=== PATIENT | female | born 1985 | race Two or more races ===

== ENCOUNTER 2024-07-05 14:09 | Emergency (ER) | payer OTHER, MEDICAID ==
[~2024-07-05] VITALS: Ht 154.9 cm; Wt 64.7 kg
[2024-07-05 14:24] VITALS: BP 117/65; PULSE 99; RESP 17; O2SAT 97
[2024-07-05] MEDS ORDERED: CEPH500C PO (14:52)
== END 2024-07-05 16:13 | disposition home or self-care (01) ==
LOC: ER 14:09
DX: L03.115 Cellulitis of right lower limb (principal)

== ENCOUNTER 2024-07-11 11:03 | Emergency (ER) | payer OTHER, MEDICAID ==
[~2024-07-11] VITALS: Ht 154.9 cm; Wt 65.5 kg
[~2024-07-11 11:03] MED LIST: CEPH500C PO
[2024-07-11 11:16] VITALS: BP 138/82; PULSE 78; RESP 18; O2SAT 97
== END 2024-07-11 12:29 | disposition home or self-care (01) ==
LOC: ER 11:03
DX: S10.81XA Abrasion of other specified part of neck, initial encounter (principal); S00.412A Abrasion of left ear, initial encounter; S00.81XA Abrasion of other part of head, initial encounter; Z53.21 Procedure and treatment not carried out due to patient leaving prior to being seen by health care provider; X58.XXXA Exposure to other specified factors, initial encounter; Y93.89 Activity, other specified; Y92.89 Other specified places as the place of occurrence of the external cause; Y99.8 Other external cause status

== ENCOUNTER 2024-07-19 10:42 | Emergency (ER) | payer MEDICAID, OTHER ==
[~2024-07-19] VITALS: Ht 154.9 cm; Wt 65.8 kg
[2024-07-19 11:13] VITALS: BP 124/84; PULSE 114; RESP 15; TEMP 97.3; O2SAT 97
[2024-07-19] MEDS ORDERED: LIDO5DIS21 TOP (15:07)
[2024-07-19] MEDS ORDERED: NAPR-746 PO (15:07)
[2024-07-19] MEDS ORDERED: CYCL-839 PO (15:07)
== END 2024-07-19 15:19 | disposition home or self-care (01) ==
LOC: ER 10:42
DX: M54.6 Pain in thoracic spine (principal); K59.00 Constipation, unspecified; Z79.899 Other long term (current) drug therapy; V29.99XA Rider (driver) (passenger) of other motorcycle injured in unspecified traffic accident, initial encounter; Y93.89 Activity, other specified; Y92.89 Other specified places as the place of occurrence of the external cause; Y99.8 Other external cause status
CPT/HCPCS: 72040; 72070; 72100; 72128

== ENCOUNTER 2024-09-13 13:49 | Emergency (ER) | payer MEDICAID, SELFPAY ==
[~2024-09-13] VITALS: Ht 154.9 cm; Wt 66.3 kg
[~2024-09-13 13:49] MED LIST changes: +CYCL-839 PO; +LIDO5DIS21 TOP; +NAPR-746 PO
[2024-09-13 15:16] VITALS: BP 130/75; PULSE 106; RESP 17; O2SAT 98
[2024-09-13] MEDS: ACETAMINOPHEN 325 MG TAB PO ONE (16:24)
--- NOTE | 2024-09-13 17:09 | DVH ---
EXAM: CT CERVICAL WITHOUT CONTRAST INDICATION: Hx of omer placement, s/p fall EXAM DATE: 09/13/2024 04:33 PM COMPARISON: None TECHNIQUE: Multiple axial CT images of the cervical spine were obtained using bone algorithm. Axial a nd coronal reformatting was done. Bone and soft tissue windows were reviewed. Radiation Dose Information: CT Dose: CTDI volume is 23.61 mGy. Dose-length product is 549.16 mGy*cm FINDINGS: The cervical alignment is intact. No acute cervical spine fracture is identified. The vertebral body heights are intact. No suspicious osseous lesions are identified. There is straightening of the normal cervical lordotic curve which may be secondary to patient positi oning or muscle spasm. This was present on previous cervical spine study of 07/19/2024. Paraspinal rods are noted in the thoracic spine as seen on CT of the thoracic spine of 09/13/2024. There is no prevertebral soft tissue swelling. IMPRESSION: 1. No evidence of acute cervical spine fracture or traumatic malalignment. 2. No findings of compressed cervical vertebra. 3. Stable straightening of the normal cervical lordotic curve. 4. No spondylolisthesis. All CT scans at this medical facility are performed using dose modulation techniques as appropriate t o a performed exam including the following: Automated exposure control was utilized; adjustment of th e MA and/or KV according to patient size; and use of iterative reconstruction technique.
--- NOTE | 2024-09-13 17:10 | ED.PDOC ---
Dionne. trauma (HPI) HPI Comments 39-year-old female with past medical history pertinent for scoliosis, presents to ED for middle and lower back pain x1 day, status post fall. Patient reports that she was decorating her [place] tree when her son and dog ran into the ladder and she fell onto her back. She denies any head injury, LOC, nausea, vomiting, numbness, tingling. Patient also denies any incontinence. She currently rates her pain as 7/10 in severity. Patient reports taking ibuprofen with some relief of symptoms. Patient states that she has a history of rods in her back due to scoliosis surgery and she sore that the rods were displaced. Chief Complaint: Fall Injury Time Seen by MD: 15:09 Primary Care Provider: SILVANO Gupta notes: Nurses Notes, Medications, Allergies Allergies: Coded Allergies: NO KNOWN ALLERGIES (Unverified , 07/05/24) Home Meds Active Scripts Lidocaine (LIDODERM 5% TOPICAL PATCH) 1 Patch Ph, 1 PATCH TOP DAILY for 30 Days, #30 PATCH 0 Refills Prov:JOEY RIGGINS NP 07/19/24 Cyclobenzaprine Hcl (Cyclobenzaprine Hcl) 10 Mg Tab, 10 MG PO QHSP PRN for 10 Days, #10 TAB 0 Refills Prov:JOEY RIGGINS NP 07/19/24 Naproxen (Naproxen) 500 Mg Tab, 500 MG PO BIDPC PRN for 10 Days, #20 TAB 0 Refills Prov:JOEY RIGGINS NP 07/19/24 Cephalexin Monohydrate (Cephalexin) 500 Mg Cap, 500 MG PO QID for 7 Days, CAP Prov:GERARDO HUGHES MD 07/05/24 Mode of Arrival: Ambulatory Past Medical History PAST MEDICAL HISTORY: Denies Surgical History: Denies all surgeries MAIL SORTER AND DELIVERY History: No Pertinent MAIL SORTER AND DELIVERY History Family History Family History: Reviewed,noncontributory to illness, No family hx of Cancer, No family hx of DM, No family hx of Heart jennifer, No family hx of HTN, No family hx ofKidney jennifer, No family hx of Liver jennifer, No family hx of Lung jennifer, No family hx of Stroke Social History Smoker: Non-Smoker Alcohol: Denies ETOH Use Drugs: Denies Drug Use Constitutional: denies: chills, diaphoresis, fatigue, fever, malaise, sweats, weakness, others EENTM: denies: blurred vision, double vision, ear bleeding, ear discharge, ear drainage, ear pain, ear ringing, eye pain, eye redness, hearing loss, mouth pain, mouth swelling, nasal discharge, nose bleeding, nose congestion, nose pain, photophobia, tearing, throat pain, throat swelling, voice changes, others Respiratory: denies: cough, hemoptysis, orthopnea, SOB at rest, shortness of breath, SOB with excertion, stridor, wheezing, others Cardiovascular: denies: chest pain, dizzy spells, diaphoresis, Dyspnea on exertion, edema, irregular heart beat, left arm pain, lightheadedness, palpitations, PND, syncope, others Gastrointestinal: denies: abdomen distended, abdominal pain, blood streaked bowels, constipated, diarrhea, dysphagia, difficulty swallowing, hematemesis, melena, nausea, poor appetite, poor fluid intake, rectal bleeding, rectal pain, vomiting, others Genitourinary: denies: abnormal vagina bleeding, burning, dyspareunia, dysuria, flank pain, frequency, hematuria, incontinence, pain, , vagina disc harge, urgency, others Neurological: denies: dizziness, fainting, headache, left sided numbness, left sided weakness, numbness, paresthesia, pre-existing deficit, right sided numbness, right sided weakness, seizure, speech problems, tingling, tremors, weakness, others Musculoskeletal: reports: back pain; denies: gout, joint pain, joint swelling, muscle pain, muscle stiffness, neck pain, others Integumetry: denies: bruises, change in color, change in hair/nails, dryness, laceration, lesions, lumps, rash, wounds, others Allergic/Immunocompromised: denies: Difficulty Healing, Frequent Infections, Hives, Itching, others Hematologic/Lymphatic: denies: anemia, blood clots, easy bleeding, easy bruising, swollen glands, others Endocrine: denies: excessive hunger, excessive sweating, excessive thirst, excessive urination, flushing, intolerance to cold, intolerance to heat, unexplained weight gain, unexplained weight loss, others Psychiatric: denies: anxiety, bipolar disorder, depression, hopeless, panic disorder, schizophrenia, sleepless, suicidal, others All Other Systems: Reviewed and Negative Physical Exam General Appearance: No Apparent Distress, Normal HEENT: Normal ENT Inspection, Pharynx Normal, TMs Normal Neck: Full Range of Motion, Non-Tender, Normal, Normal Inspection Respiratory: Chest Non-Tender, Lungs Clear, No Accessory Muscle Use, No Respi ratory Distress, Normal Breath Sounds Cardiovascular: No Edema, No JVD, No Murmur, No Gallop, Normal Peripheral Pulses, Regular Rate/Rhythm Breast Exam: Deferred Gastrointestinal: No Organomegaly, Non Tender, No Pulsatile Mass, Normal Bowel Sounds, Soft Genitalia: Deferred Pelvic: Deferred Rectal: Deferred Extremities: No calf tenderness, Normal capillary refill, Normal inspection, Normal range of motion, Non-tender, No pedal edema Musculoskeletal : Extremity Location: Back (Mild tenderness to palpation to the T-spine as well as the L-spine. No spinal step-offs noted.) Apperance: Normal Neurologic: Alert, licensed loan officer II-XII nml as Tested, No Motor Deficits, Normal Affect, Normal Mood, No Sensory Deficits Cerebellar Function: Normal Reflexes: Normal Skin: Dry, Normal Color, Warm Lymphatic: No Adenopathy Was a procedure done? Was a procedure done?: No Differential Diagnosis Multiple Trauma: Closed Head Injury, Fractures, Spine Injury, Other (Fracture, traumatic malalignment, back sprain, cauda equina syndrome) X-Ray, Labs, Meds, VS Vital Signs Date Time Temp Pulse Resp B/P (MAP) Pulse Ox O2 Delivery O2 Flow Rate FiO2 09/13/24 17:28 98.0 09/13/24 15:16 106 17 98 Room Air 09/13/24 15:16 98.7 106 17 130/75 (93) 98 98.7 09/13/24 13:59 98.7 106 17 130/75 (93) 98 Current Medications Medications (Trade) Dose Ordered Sig/Arlene Route Start Time Stop Time Status Last Admin Acetaminophen (Tylenol Tablet) 650 mg ONCE ONCE PO 09/13/24 16:15 09/13/24 16:16 DC 09/13/24 16:24 X-Ray, Labs, Meds, VS Comment CT C Spine IMPRESSION: 1. No evidence of acute cervical spine fracture or traumatic malalignment. 2. No findings of compressed cervical vertebra. 3. Stable straightening of the normal cervical lordotic curve. 4. No spondylolisthesis. CT T Spine IMPRESSION: Severe levoconvex thoracic curvature post-suh omer fixation, diffuse mineralization limiting fracture evaluation with no obvious fractures noted. Left upper lobe bulla and hyperinflation. CT L Spine IMPRESSION: Orthopedic rods and hooks seen throughout the posterior element, lamina, of the lumbar spine. The streaking artifact from the orthopedic hardware limits evaluation. No gross fractures are identified. There is moderate heterotopic ossification adjacent to the orthopedic hardware. The bilateral SI joints are normal. Partially visualized abdominal viscera demonstrates no acute abnormalities. MDM: Patient with history as above presented with back pain. History obtained from patient. Patient was nontoxic, stable, afebrile, ambulatory, no acute distress. Exam as above. Independently reviewed imaging. [Interpretation]. Reviewed external records. All findings were discussed with the patient. Differential diagnosis considered. Overall presentation is consistent with musculoskeletal back pain status post fall. Low suspicion for fracture, traumatic malalignment, cauda equina syndrome. Patient was treated with Tylenol with improvement in symptoms. Patient was reevaluated and vital signs were reviewed. Consideration was given for admission, but the patient was stable for outpatient management. Disposition: Discussed the need to follow up diagnostics, including incidental findings. Discharged the patient with instructions to obtain outpatient follow up in 1-2 days of today's symptoms and findings, with strict return precautions if patient develops new or worsening symptoms. This medical document was created using the [employer] dictation system. Although this document has been carefully reviewed, there may still be some phonetic and typographical errors, which are due to imperfections of the software program, and do not reflect any compromise in the patient's medical care. Time of 1ST Reevaluation: 17:50 Reevaluation 1ST: Improved Patient Education/Counseling: Diagnosis, Treatment, Prognosis, Need For Follow Up Family Education/Counseling: No Family Present Departure 1 Departure Time of Disposition: 17:50 Impression: Primary Impression: Back pain Qualified Codes: M54.50 - Low back pain, unspecified Additional Impression: Fall Qualified Codes: W19.XXXA - Unspecified fall, initial encounter Disposition: HOME / SELF CARE / HOMELESS Condition: Fair Critical Care Note Critical Care Time?: No Stability Stability form required: No Heart Score Heart Score: Heart Score Response (Comments) Value History N/A 0 EKG N/A 0 Age N/A 0 Risk Factors N/A 0 Troponin N/A 0 Total 0 ANGELICA SEVILLA Sep 13, 2024 17:10
--- NOTE | 2024-09-13 17:22 | DVH ---
CT OF THE THORACIC SPINE WITHOUT CONTRAST HISTORY: Hx of omer placement, s/p fall COMPARISON: CT THORACIC SPINE WO CONTRAS on DOS: 07/19/24 TECHNIQUE: Axial images through the thoracic spine were obtained without contrast. Coronal and sagitt al reformats were obtained. One or more of the following radiation dose reduction techniques were use d for this examination: automated exposure control, adjustment of the mA and/or kV according to patie nt size, use of iterative reconstruction technique. FINDINGS: There is severe levoconvex curvature of the thoracic spine status post suh omer fixation. There is diffuse mineralization , limiting evaluation for fractures. No obvious acute fracture. Thickening of the left fissure with 4 mm suggested left fissural node. Left upper lobe bulla are note d. Hyperinflation of the left upper lobe. Diffuse ground-glass opacity of the right lung and left low er lobe IMPRESSION: Severe levoconvex thoracic curvature post-suh omer fixation, diffuse mineralization limiting fr acture evaluation with no obvious fractures noted. Left upper lobe bulla and hyperinflation.
[2024-09-13 17:28] VITALS: TEMP 98
--- NOTE | 2024-09-13 17:36 | DVH ---
CT LS SPINE WO CONTRAST INDICATION: Hx of omer placement, s/p fall EXAM DATE: 09/13/2024 04:39 PM COMPARISON: CT THORACIC SPINE WO CONTRAS on DOS: 07/19/24 RADIATION DOSE: CTDIvol: 33.62 mGy, DLP: 1064.15 mGy*cm PROCEDURE: Utilizing the CT scanner, contiguous axial scans were obtained through the lumbar spine. C oronal and sagittal reformatted images were then generated. All CT scans at this medical facility are performed using dose modulation techniques as appropriate t o a performed exam including the following: Automated exposure control was utilized; adjustment of th e MA and/or KV according to patient size; and use of iterative reconstruction technique. Findings/ IMPRESSION: Orthopedic rods and hooks seen throughout the posterior element, lamina, of the lumbar spine. The st reaking artifact from the orthopedic hardware limits evaluation. No gross fractures are identified. T here is moderate heterotopic ossification adjacent to the orthopedic hardware. The bilateral SI join ts are normal. Partially visualized abdominal viscera demonstrates no acute abnormalities.
== END 2024-09-13 17:57 | disposition home or self-care (01) ==
LOC: ER 13:49
DX: M54.50 Low back pain, unspecified (principal); R91.8 Other nonspecific abnormal finding of lung field; M41.9 Scoliosis, unspecified; M54.2 Cervicalgia; W11.XXXA Fall on and from ladder, initial encounter; Y93.89 Activity, other specified; Y92.89 Other specified places as the place of occurrence of the external cause; Y99.8 Other external cause status
CPT/HCPCS: 72125; 72128; 72131

== ENCOUNTER 2024-12-15 13:41 | Emergency (ER) | payer OTHER, SELFPAY ==
[~2024-12-15] VITALS: Ht 154.9 cm; Wt 66.7 kg
--- NOTE | 2024-12-15 14:42 | ED.PDOC ---
GI ASSESSMENT HPI Comments 39 year old female presents to the ED with chief complaint of blood in stool. Patient reports that she noticed that she had dark red blood present in her stool last night. Patient relays that this is the first time this has ever happened. Patient denies any abdominal pain, N/V/D, dizziness, fever, chills, or hematuria. Chief Complaint: GI Bleed Time Seen by MD: 14:39 Primary Care Provider: SILVANO Gupta Notes: Nurses Notes, Medications, Allergies Allergies: Coded Allergies: NO KNOWN ALLERGIES (Unverified , 07/05/24) Home Meds Active Scripts Hydrocortisone Base (Anusol-Hc) 2.5 % Cre, 1 APPLIC TOP BID for 10 Days, #5 GRAMS 1 Refill Prov:DARWIN GALARZA MD 12/15/24 Lidocaine (LIDODERM 5% TOPICAL PATCH) 1 Patch Ph, 1 PATCH TOP DAILY for 30 Days, #30 PATCH 0 Refills Prov:JOEY RIGGINS NP 07/19/24 Cyclobenzaprine Hcl (Cyclobenzaprine Hcl) 10 Mg Tab, 10 MG PO QHSP PRN for 10 Days, #10 TAB 0 Refills Prov:JOEY RIGGINS NP 07/19/24 Naproxen (Naproxen) 500 Mg Tab, 500 MG PO BIDPC PRN for 10 Days, #20 TAB 0 Refills Prov:JOEY RIGGINS NP 07/19/24 Cephalexin Monohydrate (Cephalexin) 500 Mg Cap, 500 MG PO QID for 7 Days, CAP Prov:GERARDO HUGHES MD 07/05/24 Information Source: Patient Mode of Arrival: Ambulatory Timing: Hours Duration: Since onset Prehospital treatment: None Quality: None Vomitus: None Stool: Blood Streaked Severity: Moderate Recent: None Recent Hx of: None Pain Location: None Modifying Factors: Nothing Associated sign and symptoms: Blood in Stool Past Medical History PAST MEDICAL HISTORY: Denies Surgical History: Denies all surgeries AUTOCAD OPERATOR History: No Pertinent AUTOCAD OPERATOR History Family History Family History: Reviewed,noncontributory to illness, No family hx of Cancer, No family hx of DM, No family hx of Heart jennifer, No family hx of HTN, No family hx ofKidney jennifer, No family hx of Liver jennifer, No family hx of Lung jennifer, No family hx of Stroke Social History Smoker: Non-Smoker Alcohol: Denies ETOH Use Drugs: Denies Drug Use Lives In: Home Constitutional: denies: chills, diaphoresis, fatigue, fever, malaise, sweats, weakness, others EENTM: denies: blurred vision, double vision, ear bleeding, ear discharge, ear drainage, ear pain, ear ringing, eye pain, eye redness, hearing loss, mouth pain, mouth swelling, nasal discharge, nose bleeding, nose congestion, nose pain, photophobia, tearing, throat pain, throat swelling, voice changes, others Respiratory: denies: cough, hemoptysis, orthopnea, SOB at rest, shortness of breath, SOB with excertion, stridor, wheezing, others Cardiovascular: denies: chest pain, dizzy spells, diaphoresis, Dyspnea on e xertion, edema, irregular heart beat, left arm pain, lightheadedness, palpitations, PND, syncope, others Gastrointestinal: reports: blood streaked bowels, rectal bleeding; denies: abdomen distended, abdominal pain, constipated, diarrhea, dysphagia, difficulty swallowing, hematemesis, melena, nausea, poor appetite, poor fluid intake, rectal pain, vomiting, others Genitourinary: denies: abnormal vagina bleeding, burning, dyspareunia, dysuria, flank pain, frequency, hematuria, incontinence, pain, , vagina discharge, urgency, others Neurological: denies: dizziness, fainting, headache, left sided numbness, left sided weakness, numbness, paresthesia, pre-existing deficit, right sided numbness, right sided weakness, seizure, speech problems, tingling, tremors, weakness, others Musculoskeletal: denies: back pain, gout, joint pain, joint swelling, muscle pain, muscle stiffness, neck pain, others Integumetry: denies: bruises, change in color, change in hair/nails, dryness, laceration, lesions, lumps, rash, wounds, others Allergic/Immunocompromised: denies: Difficulty Healing, Frequent Infections, Hives, Itching, others Hematologic/Lymphatic: denies: anemia, blood clots, easy bleeding, easy bruis ing, swollen glands, others Endocrine: denies: excessive hunger, excessive sweating, excessive thirst, exc essive urination, flushing, intolerance to cold, intolerance to heat, unexplained weight gain, unexplained weight loss, others Psychiatric: denies: anxiety, bipolar disorder, depression, hopeless, panic disorder, schizophrenia, sleepless, suicidal, others All Other Systems: Reviewed and Negative Physical Exam General Appearance: Moderate Distress, Normal HEENT: Normal ENT Inspection, PERRL/EOMI Neck: Full Range of Motion, Non-Tender, Normal, Normal Inspection Respiratory: Chest Non-Tender, Lungs Clear, No Accessory Muscle Use, No Respiratory Distress, Normal Breath Sounds Cardiovascular: No Edema, No JVD, No Murmur, No Gallop, Normal Peripheral Pulses, Regular Rate/Rhythm Breast Exam: Deferred Gastrointestinal: No Organomegaly, Non Tender, No Pulsatile Mass, Normal Bowel Sounds, Soft Genitalia: Deferred Pelvic: Deferred Rectal: Deferred Extremities: No calf tenderness, Normal capillary refill, Normal inspection, Normal range of motion, Non-tender, No pedal edema Musculoskeletal : Apperance: Normal Neurologic: Alert, software engineer II-XII nml as Tested, No Motor Deficits, Normal Affect, Normal Mood, No Sensory Deficits Cerebellar Function: Normal Reflexes: Normal Skin: Dry, Normal Color, Warm Peripheral Pulses: 3+ Radial (R), 3+ Radial (L) Lymphatic: No Adenopathy Was a procedure done? Was a procedure done?: No GI differential Dx Differential Diagnosis: Constipation, Diverticular disease, Esophagitis, Gastritis/PUD, Gastroenteritis X-Ray, Labs, Meds, VS Vital Signs Date Time Temp Pulse Resp B/P (MAP) Pulse Ox O2 Delivery O2 Flow Rate FiO2 12/15/24 14:00 97.3 98 16 113/75 (88) 98 97.3 Lab Test 12/15/24 15:05 Range/Units White Blood Count 7.9 4.4-10.8 10^3/uL Red Blood Count 5.29 H 4.0-5.20 10^6/uL Hemoglobin 15.1 12.2-16.2 g/dL Hematocrit 45.4 36.0-46.0 % Mean Corpuscular Volume 85.9 80.0-100.0 fL Mean Corpuscular Hemoglobin 28.5 28.0-32.0 pg Mean Corpuscular Hemoglobin Concent 33.2 32.0-36.0 g/dL Red Cell Distribution Width 14.0 11.8-14.3 % Platelet Count 233 140-450 10^3/uL Mean Platelet Volume 7.9 6.9-10.8 fL Neutrophils (%) (Auto) 65.5 37.0-80.0 % Lymphocytes (%) (Auto) 24.8 10.0-50.0 % Monocytes (%) (Auto) 7.5 0.0-12.0 % Eosinophils (%) (Auto) 1.3 0.0-7.0 % Basophils (%) (Auto) 0.9 0.0-2.0 % Neutrophils # (Auto) 5.2 1.6-8.6 10 ^3/uL Lymphocytes # (Auto) 2.0 0.4-5.4 10 ^3/uL Monocytes # (Auto) 0.6 0-1.3 10 ^3/uL Eosinophils # (Auto) 0.1 0-0.8 10 ^3/uL Basophils # (Auto) 0.1 0-0.2 10 ^3/uL Nucleated Red Blood Cells 0.0 % Sodium Level 141 136-145 mmol/L Potassium Level 4.3 3.5-5.1 mmol/L Chloride Level 109 H 98-107 mmol/L Carbon Dioxide Level 29 20-31 mmol/L Anion Gap 3 L 5-15 Blood Urea Nitrogen 10 9-23 mg/dL Creatinine 0.90 0.550-1.02 mg/dL Glomerular Filtration Rate Calc 83 >90 mL/min BUN/Creatinine Ratio 11.1 10.0-20.0 Serum Glucose 105 74-106 mg/dL Calcium Level 9.6 8.7-10.4 mg/dL Patient alert. Complaining of blood per rectum. Vitals stable. Answering questions. Abdomen is soft nontender. No sign of distress. Ambulating without difficulty. She is not anemic. Possibly will need colonoscopy. She does not take any blood thinner. No leg swelling. No shortness a breath. No chest pain. Reviewed her history. Hemoglobin within normal limits. No sign of anemia. Was given prescription of Anusol hydrocortisone. Explained to the patient. Was told to follow up with her primary care physician. Was told to come back if there is any problem. Time of 1ST Reevaluation: 15:39 Reevaluation 1ST: Improved Patient Education/Counseling: Diagnosis, Treatment Family Education/Counseling: No Family Present Additional Information Previous visit documents reviewed: 09/13/24 for back pain The following tests were ordered, and results were reviewed by me: Additional Information was gathered from interviewing the following independent historians: None I reviewed and agreed with the following test results read by other providers: None I discussed treatment and results with medical personnel and: Patient Departure 1 Departure Time of Disposition: 15:07 Impression: Primary Impression: Rectal fissure Disposition: 01 HOME / SELF CARE / HOMELESS Condition: Good e-Prescriptions Hydrocortisone Base (Anusol-Hc) 2.5 % Cre 1 APPLIC TOP BID for 10 Days, #5 GRAMS 1 Refill Prov: DARWIN GALARZA MD 12/15/24 Discharged With: Self Critical Care Note Critical Care Time?: No Stability Stability form required: No Heart Score Heart Score: Heart Score Response (Comments) Value History N/A 0 EKG N/A 0 Age N/A 0 Risk Factors N/A 0 Troponin N/A 0 Total 0 I personally scribed for DARWIN GALARZA MD ([email or web address]) on 12/15/24 at 14:42. Electronically submitted by Robel Merino ([email or web address]). DARWIN GALARZA MD Dec 15, 2024 14:42
[2024-12-15] MEDS ORDERED: HYDR2.5C39 TOP (15:08)
[2024-12-15 15:17] LABS: Basophils # (auto) 0.1 10 ^3/uL (0-0.2); Basophils % (auto) 0.9 % (0.0-2.0); Eosinophils # (auto) 0.1 10 ^3/uL (0-0.8); Eosinophils % (auto) 1.3 % (0.0-7.0); Hematocrit 45.4 % (36.0-46.0); Hemoglobin 15.1 g/dL (12.2-16.2); Lymphocytes % (auto) 24.8 % (10.0-50.0); Mean Corpuscular Hemoglobin 28.5 pg (28.0-32.0); Mean Corpuscular Hgb Conc. 33.2 g/dL (32.0-36.0); Mean Corpuscular Volume 85.9 fL (80.0-100.0); Monocytes # (auto) 0.6 10 ^3/uL (0-1.3); Monocytes % (auto) 7.5 % (0.0-12.0); Neutrophils # (auto) 5.2 10 ^3/uL (1.6-8.6); Neutrophils % (auto) 65.5 % (37.0-80.0); Platelet Count (auto) 233 10^3/uL (140-450); Red Blood Cells 5.29 10^6/uL (4.0-5.20); White Blood Cell 7.9 10^3/uL (4.4-10.8)
[2024-12-15 15:27] LABS: Potassium 4.3 mmol/L (3.5-5.1); Sodium 141 mmol/L (136-145)
[2024-12-15 15:28] LABS: Anion Gap 3 (5-15); Calcium 9.6 mg/dL (8.7-10.4); Carbon Dioxide 29 mmol/L (20-31)
[2024-12-15 15:33] LABS: BUN/Creatinine Ratio 11.1 (10.0-20.0); Blood Urea Nitrogen 10 mg/dL (9-23); Glucose 105 mg/dL (74-106)
[2024-12-15 15:39] LABS: Chloride 109 mmol/L (98-107)
[2024-12-15 17:30] VITALS: BP 118/68; PULSE 106; RESP 18; TEMP 98.7; O2SAT 96
== END 2024-12-15 17:41 | disposition home or self-care (01) ==
LOC: ER 13:41
DX: K60.2 Anal fissure, unspecified (principal)
CPT/HCPCS: 36415; 80048; 85025

== ENCOUNTER 2025-01-01 17:41 | Emergency (ER) | payer OTHER ==
[~2025-01-01] VITALS: Ht 154.9 cm; Wt 68.3 kg
[~2025-01-01 17:41] MED LIST changes: +HYDR2.5C39 TOP
--- NOTE | 2025-01-01 19:17 | DVH ---
EXAM: XR Lumbosacral Spine, 2 or 3 Views CLINICAL INDICATION: Fall TECHNIQUE: Frontal and lateral views of the lumbar spine and sacrum. COMPARISON: XY LUMBAR SPINE 3 VIEW on DOS: 07/19/24 FINDINGS: VERTEBRAE: Extensive posterior fusion of the thoracolumbar spine. No gross acute fracture. Normal alignment. SACRUM/COCCYX: Unremarkable as visualized. No acute fracture. DISC SPACES: No acute findings. No significant narrowing. SOFT TISSUES: Unremarkable. OTHER FINDINGS: . IMPRESSION: Extensive posterior fusion of the thoracolumbar spine. No gross acute fracture.
--- NOTE | 2025-01-01 19:18 | DVH ---
EXAM: XR Right Hip With Pelvis When Performed, 2 or 3 Views CLINICAL INDICATION: Fall TECHNIQUE: Two or three views of the right hip with pelvis when performed. COMPARISON: None FINDINGS: BONES/JOINTS: Unremarkable. No acute fracture. No dislocation. SOFT TISSUES: Unremarkable. OTHER FINDINGS: . None. IMPRESSION: No acute findings in the right hip.
[2025-01-01 19:42] VITALS: BP 108/77; PULSE 95; RESP 14; TEMP 98.7; O2SAT 99
--- NOTE | 2025-01-01 19:42 | ED.PDOC ---
Back pain HPI HPI Comments PATIENT STATES SHE SLIPPED AND FELL IN THE SHOWER LAST NIGHT. C/O RIGHT HIP AND RIGHT LOWER BACK PAIN. STATES THE SHOWER UMM HIT HER IN THE HEAD, DENIES LOC Chief Complaint: Fall Injury Time Seen by MD: 18:53 Primary Care Provider: DELISA Reviewed Notes: Nurses Notes, Medications, Allergies Allergies: Coded Allergies: NO KNOWN ALLERGIES (Unverified , 07/05/24) Home Meds Active Scripts Hydrocortisone Base (Anusol-Hc) 2.5 % Cre, 1 APPLIC TOP BID for 10 Days, #5 GRAMS 1 Refill Prov:DARWIN GALARZA MD 12/15/24 Lidocaine (LIDODERM 5% TOPICAL PATCH) 1 Patch Ph, 1 PATCH TOP DAILY for 30 Days, #30 PATCH 0 Refills Prov:JOEY RIGGINS NP 07/19/24 Cyclobenzaprine Hcl (Cyclobenzaprine Hcl) 10 Mg Tab, 10 MG PO QHSP PRN for 10 Days, #10 TAB 0 Refills Prov:JOEY RIGGINS NP 07/19/24 Naproxen (Naproxen) 500 Mg Tab, 500 MG PO BIDPC PRN for 10 Days, #20 TAB 0 Refills Prov:JOEY RIGGINS NP 07/19/24 Cephalexin Monohydrate (Cephalexin) 500 Mg Cap, 500 MG PO QID for 7 Days, CAP Prov:GERARDO HUGHES MD 07/05/24 Information Source: Patient Mode of Arrival: Ambulatory Past Medical History PAST MEDICAL HISTORY: Denies Surgical History: Denies all surgeries TRAIN OPERATOR History: No Pertinent TRAIN OPERATOR History Family History Family History: Reviewed,noncontributory to illness, No family hx of Cancer, No family hx of DM, No family hx of Heart jennifer, No family hx of HTN, No family hx ofKidney jennifer, No family hx of Liver jennifer, No family hx of Lung jennifer, No family hx of Stroke Social History Smoker: Non-Smoker Alcohol: Denies ETOH Use Drugs: Denies Drug Use Lives In: Home Constitutional: denies: chills, diaphoresis, fatigue, fever, malaise, sweats, weakness, others EENTM: denies: blurred vision, double vision, ear bleeding, ear discharge, ear drainage, ear pain, ear ringing, eye pain, eye redness, hearing loss, mouth pain, mouth swelling, nasal discharge, nose bleeding, nose congestion, nose pain, photophobia, tearing, throat pain, throat swelling, voice changes, others Respiratory: denies: cough, hemoptysis, orthopnea, SOB at rest, shortness of breath, SOB with excertion, stridor, wheezing, others Cardiovascular: denies: chest pain, dizzy spells, diaphoresis, Dyspnea on exertion, edema, irregular heart beat, left arm pain, lightheadedness, palpitations, PND, syncope, others Gastrointestinal: denies: abdomen distended, abdominal pain, blood streaked bowels, constipated, diarrhea, dysphagia, difficulty swallowing, hematemesis, melena, nausea, poor appetite, poor fluid intake, rectal bleeding, rectal pain, vomiting, others Genitourinary: denies: abnormal vagina bleeding, burning, dyspareunia, dysuria, flank pain, frequency, hematuria, incontinence, pain, , vagina discharge, urgency, others Neurological: denies: dizziness, fainting, headache, left sided numbness, left sided weakness, numbness, paresthesia, pre-existing deficit, right sided numbness, right sided weakness, seizure, speech problems, tingling, tremors, weakness, others Musculoskeletal: reports: back pain, others (RIGHT HIP PAIN); denies: gout, joint pain, joint swelling, muscle pain, muscle stiffness, neck pain Integumetry: denies: bruises, change in color, change in hair/nails, dryness, laceration, lesions, lumps, rash, wounds, others Allergic/Immunocompromised: denies: Difficulty Healing, Frequent Infections, Hives, Itching, others Hematologic/Lymphatic: denies: anemia, blood clots, easy bleeding, easy bruising, swollen glands, others Endocrine: denies: excessive hunger, excessive sweating, excessive thirst, excessive urination, flushing, intolerance to cold, intolerance to heat, unexplained weight gain, unexplained weight loss, others Psychiatric: denies: anxiety, bipolar disorder, depression, hopeless, panic disorder, schizophrenia, sleepless, suicidal, others Physical Exam General Appearance: No Apparent Distress, Normal HEENT: Pharynx Normal, TMs Normal Neck: Full Range of Motion, Non-Tender, Normal, Normal Inspection Respiratory: Lungs Clear, No Accessory Muscle Use, No Respiratory Distress, Normal Breath Sounds Cardiovascular: No Murmur, Normal Peripheral Pulses, Regular Rate/Rhythm Breast Exam: Deferred Gastrointestinal: No Organomegaly, Non Tender, No Pulsatile Mass, Normal Bowel Sounds, Soft Genitalia: Deferred Pelvic: Deferred Rectal: Deferred Extremities: Normal capillary refill, Normal inspection, Normal range of motion, Non-tender, No pedal edema Musculoskeletal : Location: Right Extremity Location: Back (Palpated over right side lower back musculature without any noted abrasions ecchymosis lacerations. Strength sensory motion intact negative straight leg raise bilateral.), Hip (Tenderness palpated over right hip full range of motion without clicking. ) Apperance: Normal Neurologic: Alert, copy lathe tender II-XII nml as Tested, No Motor Deficits, Normal Affect, Normal Mood, No Sensory Deficits Cerebellar Function: Normal Reflexes: Normal Skin: Dry, Normal Color, Warm Lymphatic: No Adenopathy Was a procedure done? Was a procedure done?: No Back Pain Differential Dx Differential Diagnosis: Fracture, Musculoskeletal Pain, Strain X-Ray, Labs, Meds, VS Vital Signs Date Time Temp Pulse Resp B/P (MAP) Pulse Ox O2 Delivery O2 Flow Rate FiO2 01/01/25 19:42 98.7 95 14 108/77 (87) 99 98.7 01/01/25 19:33 97.1 110 18 123/84 (97) 96 97.1 01/01/25 19:33 110 18 96 Room Air 01/01/25 17:50 97.1 110 18 123/84 (97) 96 97.1 Current Medications Medications (Trade) Dose Ordered Sig/Arlene Route Start Time Stop Time Status Last Admin Ibuprofen (Motrin Tablet) 800 mg ONCE ONCE PO 01/01/25 19:45 01/01/25 19:46 DC 01/01/25 19:59 X-Ray, Labs, Meds, VS Comment Thoracic and lumbar spine x-ray shows no acute fractures osseous lesions or subluxations or dislocations. Patient given ibuprofen 800 mg p.o. reports improvement in pain and function requesting discharge at this time. Advised on rest ice and heat. Advised follow up with her PCP in 1-2 days as necessary. ER return precautions given patient indicates understanding agrees with discharge plan of care. Time of 1ST Reevaluation: 19:47 Reevaluation 1ST: Unchanged Patient Education/Counseling: Diagnosis, Treatment, Prognosis, Need For Follow Up Family Education/Counseling: No Family Present Departure 1 Departure Time of Disposition: 19:46 Impression: Primary Impression: Strain of muscle, fascia and tendon of lower back, initial encounter Additional Impression: Strain of right hip Qualified Codes: S76.011A - Strain of muscle, fascia and tendon of right hip, initial encounter Disposition: 04 [facility]ACILITY Condition: Stable Discharged With: Self Critical Care Note Critical Care Time?: No Stability Stability form required: JAMES Khanna Jan 01, 2025 19:42
[2025-01-01] MEDS: IBUPROFEN 800 MG TAB PO ONE (19:59)
== END 2025-01-01 20:02 | disposition home or self-care (01) ==
LOC: ER 17:45
DX: S76.011A Strain of muscle, fascia and tendon of right hip, initial encounter (principal); S39.012A Strain of muscle, fascia and tendon of lower back, initial encounter; W18.2XXA Fall in (into) shower or empty bathtub, initial encounter; Y93.E1 Activity, personal bathing and showering; Y92.89 Other specified places as the place of occurrence of the external cause; Y99.8 Other external cause status
CPT/HCPCS: 72100; 73502